=== PATIENT | male | born 1995 | race Caucasian/White ===

== ENCOUNTER → 2017-01-03 | Outpatient (CLI) | payer MEDICAID, OTHER ==
[2017-01-03 12:28] LABS: CH 31.3; CHCM 35.2; HCT 44.2 % (39.0-53.0); HDW 2.85; HGB 15.3 gm/dL (13.0-17.5); MCHC 34.7 g/dL (31.0-37.0); MCV 89.3 fL (80.0-100.0); Mean Platelet Volume 6.6; RBC 4.95 m/uL (4.30-5.90); RDW 12.6 % (11.5-15.5); WBC 5.3 k/uL (4.0-11.0)
[2017-01-03 12:40] LABS: Anion Gap 12 mmol/L; Blood Urea Nitrogen 13 mg/dL (9-20); Calcium 9.5 mg/dL (8.4-10.2); Carbon Dioxide 27 mmol/L (22-30); Chloride 102 mmol/L (98-107); Cholesterol 133 mg/dL (<200); Glucose 99 mg/dL (74-99); HDL Cholesterol 78 mg/dL (40-60); Non-African American GFR(MDRD) >60 (>60 ml/min/1.73 sqM); Potassium 4.1 mmol/L (3.5-5.1); Sodium 141 mmol/L (137-145); Triglycerides 38 mg/dL (<150)
== END | disposition home or self-care (01) ==
LOC: LABWHC1 11:56
PROVIDERS: ATTEND Family Medicine
DX: R11.0 Nausea (principal); R10.10 Upper abdominal pain, unspecified
CPT/HCPCS: 36415; 80048; 80061; 84443; 85027

== ENCOUNTER → 2017-01-10 | Outpatient (CLI) | payer MEDICAID, OTHER ==
[2017-01-10 13:36] LABS: Bilirubin, Delta 0.2 mg/dL (0.0-0.2); Total Bilirubin 0.7 mg/dL (0.2-1.3); Total Protein 8.3 g/dL (6.3-8.2)
== END | disposition home or self-care (01) ==
LOC: RADXRMAIN 12:24
PROVIDERS: ATTEND Nurse Practitioner Women's Health
DX: Z00.00 Encounter for general adult medical examination without abnormal findings (principal)
CPT/HCPCS: 80076